=== PATIENT | female | born 1955 ===

== ENCOUNTER → 2017-04-29 | Outpatient (CLI) | payer OTHER | LOC: BRMIMAGING 12:07 | PROVIDERS: ATTEND Internal Medicine | DX: M12.841 Other specific arthropathies, not elsewhere classified, right hand (principal); M12.842 Other specific arthropathies, not elsewhere classified, left hand; M47.892 Other spondylosis, cervical region; M19.071 Primary osteoarthritis, right ankle and foot; M19.072 Primary osteoarthritis, left ankle and foot | CPT/HCPCS: 72052-PO; 73130-PO; 73630-PO ==